=== PATIENT | female | born 1995 | race American Indian/Alaskan Native ===

== ENCOUNTER 2017-07-16 09:45 | Emergency (ER) | payer SELFPAY ==
[2017-07-16 12:55] LABS: HCG Qualitative,Urine Positive (Negative)
[2017-07-16 13:01] LABS: Bacteria,Urine 1+ /HPF (Negative); Bilirubin,Urine NEG (Negative); Blood,Urine NEG (Negative); Color,Urine Yellow (Yellow); Mucus,Urine 1+ /HPF; Nitrite,Urine NEG (Negative); Urobilinogen,Urine < 2.0 mg/dL (<2.0)
[2017-07-16 13:58] LABS: Basophils % (Auto) 0.4 % (0.0-1.8); Eosinophils # (Auto) 0.1 K/mm3 (0.0-0.4); Eosinophils % (Auto) 1.9 % (0.0-4.3); Hematocrit 36.5 % (30.3-42.9); Hemoglobin 12.3 gm/dl (10.1-14.3); Lymphocytes # (Auto) 2.2 K/mm3 (1.2-5.4); Lymphocytes % (Auto) 33.3 % (13.4-35.0); Mean Corpuscular HGB Conc 34 % (30-34); Mean Corpuscular Hemoglobin 32 pg (28-32); Mean Corpuscular Volume 94 fl (79-97); Monocytes # (Auto) 0.5 K/mm3 (0.0-0.8); Monocytes % (Auto) 7.5 % (0.0-7.3); Platelet Count 263 K/mm3 (140-440); Red Blood Count 3.89 M/mm3 (3.65-5.03); Red Cell Distribution Width 13.1 % (13.2-15.2)
[2017-07-16] MEDS ORDERED: XYLOCAINE 1% MPF 5 mL INFILTRATI ONE (14:02)
[2017-07-16] MEDS ORDERED: ROCEPHIN IM ONE (14:02)
[2017-07-16] MEDS ORDERED: ZITHROMAX PO ONE (14:02)
[2017-07-16 14:12] LABS: BUN/Creatinine Ratio 24; Blood Urea Nitrogen 12 mg/dL (7-17); Calcium 9.1 mg/dL (8.4-10.2); Hemolysis Index 7
--- NOTE | 2017-07-16 14:39 | Emergency Department Report ---
ED Female HPI - General Chief complaint: Urogenital-Female Stated complaint: STOMACH CRAMPS Time Seen by Provider: 07/16/17 13:09 Source: patient Mode of arrival: Ambulatory Limitations: No Limitations - History of Present Illness Initial comments: This is a 21-year-old female nontoxic, well nourished in appearance, no acute signs of distress presents to the ED with c/o of left sided pelvic cramping, dysuria, polyuria, and vaginal discharge x2 weeks. Patient denies any abdominal pain, chest pain, shortness of breathe, fever, chills, headache, nausea, vomiting, stiff neck, numbness or tingling. Patient describes vaginal discharge as white in color. Patient denies any allergies or PMH. Patient stated she is concerned about STD and would like to be treated empirically in the ED. MD Complaint: vaginal discharge, dysuria, pelvic pain -: week(s) (2) Severity: mild Severity scale (0 -10): 8 Quality: burning Consistency: constant Improves with: none Worsens with: urination Are you Now?: Yes Last Menstrual Period: 06/14/17 EDC: 03/21/18 Associated Symptoms: vaginal discharge, dysuria, other (right pelvic cramping). denies: vaginal bleeding, abdominal pain, nausea/vomiting, fever/chills, headaches, loss of appetite, hematuria, rash, seizure, shortness of breath, syncope, weakness - Related Data Sexually active: Yes Previous Rx's Medication Instructions Recorded Last Taken Type Nitrofurantoin [place]/M-Cryst 100 mg PO Q12HR #14 capsule 07/16/17 Unknown Rx [Macrobid CAP] metroNIDAZOLE [Flagyl] 500 mg PO Q12HR #14 tab 07/16/17 Unknown Rx Allergies Allergy/AdvReac Type Severity Reaction Status Date / Time No Known Allergies Allergy Unverified 07/16/17 10:41 ED Review of Systems ROS: Stated complaint: STOMACH CRAMPS Other details as noted in HPI Constitutional: denies: chills, fever Eyes: denies: eye pain, eye discharge, vision change ENT: denies: ear pain, throat pain Respiratory: denies: cough, shortness of breath, wheezing Cardiovascular: denies: chest pain, palpitations Endocrine: no symptoms reported Gastrointestinal: other (pelvic pain). denies: abdominal pain, nausea, diarrhea Genitourinary: urgency, dysuria, discharge Musculoskeletal: denies: back pain, joint swelling, arthralgia Skin: denies: rash, lesions Neurological: denies: headache, weakness, paresthesias Psychiatric: denies: anxiety, depression Hematological/Lymphatic: denies: easy bleeding, easy bruising ED Past Medical Hx - Past Medical History Previous Medical History?: No - Surgical History Past Surgical History?: No - Social History Smoking Status: Current Some Day Smoker Substance Use Type: Alcohol - Medications Home Medications: Home Medications Medication Instructions Recorded Confirmed Last Taken Type Nitrofurantoin [place]/M-Cryst 100 mg PO Q12HR #14 capsule 07/16/17 Unknown Rx [Macrobid CAP] metroNIDAZOLE [Flagyl] 500 mg PO Q12HR #14 tab 07/16/17 Unknown Rx ED Physical Exam - General Limitations: No Limitations General appearance: alert, in no apparent distress - Head Head exam: Present: atraumatic, normocephalic, normal inspection - Eye Eye exam: Present: normal appearance, PERRL, EOMI. Absent: scleral icterus, conjunctival injection, nystagmus, periorbital swelling, periorbital tenderness Pupils: Present: normal accommodation - ENT ENT exam: Present: normal exam, normal orophraynx, mucous membranes moist, TM's normal bilaterally, normal external ear exam - Neck Neck exam: Present: normal inspection, full ROM. Absent: tenderness, meningismus, lymphadenopathy, thyromegaly - Respiratory Respiratory exam: Present: normal lung sounds bilaterally. Absent: respiratory distress, wheezes, rales, rhonchi, stridor, chest wall tenderness, accessory muscle use, decreased breath sounds, prolonged expiratory - Cardiovascular Cardiovascular Exam: Present: regular rate, normal rhythm, normal heart sounds. Absent: irregular rhythm, systolic murmur, diastolic murmur, rubs, gallop - GI/Abdominal GI/Abdominal exam: Present: soft, normal bowel sounds. Absent: distended, tenderness, guarding, rebound, rigid, diminished bowel sounds - Expanded GI/Abdominal Exam Expanded GI/Abdominal exam: Absent: psoas sign, obturator sign, heel tap sign, Parra's sign, Rovsing's sign, tenderness at [place]'s [place], ascites - Rectal Rectal exam: Present: deferred - External exam: Present: normal external exam, other (steam table worker Leslee director asset present during exam). Absent: erythema, swelling, lesions, lacerations, ecchymosis, bleeding Speculum exam: Present: normal speculum exam, cervical discharge (white with no odor), other (OS closed. steam table worker Leslee director asset present during exam). Absent : erythema, vaginal discharge, vaginal bleeding, foreign body, tissue, laceration Bi-manual exam: Present: normal bi-manual exam, other (steam table worker Leslee director asset present during exam). Absent: cervical motion tendernes, adnexal tenderness, adnexal mass, uterine enlargement, uterine tenderness - Extremities Exam Extremities exam: Present: normal inspection, full ROM, normal capillary refill. Absent: tenderness, pedal edema, joint swelling, calf tenderness - Back Exam Back exam: Present: normal inspection, full ROM. Absent: tenderness, CVA tenderness (R), CVA tenderness (L), muscle spasm, paraspinal tenderness, vertebral tenderness, rash noted - Neurological Exam Neurological exam: Present: alert, oriented X3, CN II-XII intact, normal gait, reflexes normal - Psychiatric Psychiatric exam: Present: normal affect, normal mood - Skin Skin exam: Present: warm, dry, intact, normal color. Absent: rash ED Course Vital Signs 07/16/17 07/16/17 10:41 16:08 Temperature 98.2 F 98.2 F Pulse Rate 110 H 101 H Respiratory 16 16 Rate Blood Pressure 129/77 114/55 O2 Sat by Pulse 99 99 Oximetry - Reevaluation(s) Reevaluation #1: 07/16/17 14:43 Patient is speaking in full sentences with no signs of distress noted. ED Medical Decision Making - Lab Data Result diagrams: 07/16/17 13:41 07/16/17 13:41 - Medical Decision Making This is a 21-year-old female that presents with positive , BV, and UTI. Patient is stable and was examined by me. US obtained and dictated by radiologist which indicates no abnormalities and no evidence of IUP. A ectopic not be excluded. Due to patient distention age with a last menstrual cycle of I can correlate that this is related to age. Beta HCG mahendra obtained. Patient was instructed to follow-up with OBGYN in 24 hours symptoms such as vaginal bleeding, severe worsening abdominal pain or any abnormal symptoms to return to emergency room as soon as possible. Patient was also instructed to return in 48 hours for repeat quant HCG and possible US. Labs within normal limits. UA indiciated UTI. WET prep shows BV. GC pending. Pt was instructed to return in 3 days for results. Patient wanted to be treated empirically with Rocephin and azithromycin for possible STD which patient received. At time time of discharge, the patient does not seem toxic or ill in appearance. No acute signs of distress noted. Patient agrees to discharge treatment plan of care. No further questions noted by the patient. Critical care attestation.: If time is entered above; I have spent that time in minutes in the direct care of this critically ill patient, excluding procedure time. ED Disposition Clinical Impression: Bacterial vaginosis UTI (urinary tract infection) Qualifiers: Urinary tract infection type: site unspecified Hematuria presence: without hematuria Qualified Code(s): N39.0 - Urinary tract infection, site not specified Qualifiers: Weeks of gestation: unspecified Qualified Code(s): Z34.90 - Encounter for supervision of normal , unspecified, unspecified trimester Disposition: TO HOME OR SELFCARE Is pt being admited?: No Does the pt Need Aspirin: No Condition: Stable Instructions: Bacterial Vaginosis (ED), Metronidazole (By mouth), Nitrofurantoin Macrocrystals (By mouth), Urinary Tract Infection in Women (ED), (ED) Additional Instructions: Follow-up with OBGYN in 24 hours symptoms such as vaginal bleeding, severe worsening abdominal pain or any abnormal symptoms to return to emergency room as soon as possible. Return to the Emergency Room in 48 hours for a repeat HCG and possible Ultrasound. Return to the medical records to obtain your results of gonorrhea/chlamydia. Prescriptions: metroNIDAZOLE [Flagyl] 500 mg PO Q12HR #14 tab Nitrofurantoin [place]/M-Cryst [Macrobid CAP] 100 mg PO Q12HR #14 capsule Referrals: PRIMARY CARE, [Primary Care Provider] - 3-5 Days SHE STORM MD [Staff Physician] - 3-5 Days [facility] [Outside] - 3-5 Days [facility] [Outside] - 3-5 Days MELONIE ANGELES MD [Staff Physician] - 24 Hours Forms: STI Treatment and Prevention, Work/School Release Form(ED)
--- NOTE | 2017-07-16 16:18 | Ultrasound Report ---
FINAL REPORT PROCEDURE: US OB TRANSVAGINAL TECHNIQUE: Real-time transvaginal sonography of the uterus, placenta, amniotic fluid, adnexa, and fetus was performed with image documentation. Measurements were obtained to determine age/size. M-mode Doppler was used to document heartbeat. CPT 06097 HISTORY: left side pelvic pain. Positive test COMPARISON: No prior studies are available for comparison. FINDINGS: There is no evidence of intrauterine . The endometrial stripe measures up to 15.9 millimeter in thickness. No fluid is seen in the endometrial canal. No uterine masses are identified. The uterus measures 7.7 x 5.0 x 5.8 centimeter. Right and left ovaries show no focal abnormalities. Small peripheral follicles are visualized. The right ovary measures 2.1 x 2.5 x 2.0 centimeter. The left ovary measures 3.8 x 2.5 x 3.5 centimeter. IMPRESSION: Uterus and ovaries show no focal abnormalities. No evidence of intrauterine . Recommend correlation with serial beta HCG units and follow-up pelvic ultrasound if clinically indicated. Ectopic cannot be excluded.
[2017-07-16 16:30] VITALS: BP 114/55
--- NOTE | 2017-07-17 07:15 | Ultrasound Report ---
ULTRASOUND OB LESS THAN 14 WEEKS FETUS History: Left-sided pelvic pain. Findings: Transabdominal ultrasound was performed. Transvaginal OB ultrasound was also performed at the same time which was dictated separately. Images demonstrate an anteverted uterus measuring 7.9 x 5.0 x 5.8 cm. No obvious uterine mass. The endometrium measures approximately 1.9 cm. No gestational sac is demonstrated on transabdominal ultrasound. The ovaries are obscured. No pelvic fluid collection. Impression: No intrauterine is demonstrated on transabdominal imaging. Please refer to the ultrasound OB transvaginal performed on the same day.
== END 2017-07-16 17:09 | disposition home or self-care (01) ==
LOC: ED 09:45
DX: Z34.90 Encounter for supervision of normal pregnancy, unspecified, unspecified trimester (principal); N39.0 Urinary tract infection, site not specified; N76.0 Acute vaginitis; B96.89 Other specified bacterial agents as the cause of diseases classified elsewhere; F17.200 Nicotine dependence, unspecified, uncomplicated
CPT/HCPCS: 36415; 76801; 76817; 80048; 81001; 81025; 84702; 85025; 87210; 87591; 96372; 99284; J0696

== ENCOUNTER 2020-08-20 15:48 | Emergency (ER) | payer MEDICAID ==
[2020-08-20 16:00] VITALS: BP 110/60
--- NOTE | 2020-08-20 16:52 | Emergency Department Report ---
ED Female HPI - General Chief complaint: Skin/Abscess/Foreign Body Stated complaint: STUCK CONDOM Time Seen by Provider: 08/20/20 16:15 Source: patient Mode of arrival: Ambulatory Limitations: No Limitations - History of Present Illness Initial comments: pt is a 24 yo female who presents to the ED with c/o a condom being stuck in the vaginal vault since 4 AM this morning. she states she went to urgent care and they were able to visualize the condom but did not have the necessary tools for removal. she states she was advised to report to the ED for removal. she states she has some mild suprapubic pressure. she denies any fever, n/v/d, dysuria, abnormal vaginal discharge. no pmhx. no allergies to meds. LNMP last week. - Related Data Previous Rx's Medication Instructions Recorded Last Taken Type Nitrofurantoin [place]/M-Cryst 100 mg PO Q12HR #14 capsule 07/16/17 Unknown Rx [Macrobid CAP] metroNIDAZOLE [Flagyl] 500 mg PO Q12HR #14 tab 07/16/17 Unknown Rx Allergies Allergy/AdvReac Type Severity Reaction Status Date / Time No Known Allergies Allergy Verified 08/20/20 15:55 ED Review of Systems ROS: Stated complaint: STUCK CONDOM Other details as noted in HPI Comment: All other systems reviewed and negative ED Past Medical Hx - Past Medical History Previous Medical History?: No - Surgical History Past Surgical History?: No - Social History Smoking Status: Never Smoker Substance Use Type: Alcohol - Medications Home Medications: Home Medications Medication Instructions Recorded Confirmed Last Taken Type Nitrofurantoin [place]/M-Cryst 100 mg PO Q12HR #14 capsule 07/16/17 Unknown Rx [Macrobid CAP] metroNIDAZOLE [Flagyl] 500 mg PO Q12HR #14 tab 07/16/17 Unknown Rx ED Physical Exam - General Limitations: No Limitations General appearance: alert, in no apparent distress - Head Head exam: Present: atraumatic, normocephalic - Eye Eye exam: Present: normal appearance - ENT ENT exam: Present: mucous membranes moist - Respiratory Respiratory exam: Absent: respiratory distress, accessory muscle use - GI/Abdominal GI/Abdominal exam: Present: soft. Absent: distended, tenderness, guarding, rebound, rigid - Speculum exam: Present: other (there is a condom present in the vaginal vaginal vault, no signficant discharge, no signficant odor, no erythema or bleeding, no CMT or adnexal ttp or masses, entrepreneurship program director:CARLOS EDUARDO wallis) - Neurological Exam Neurological exam: Present: alert, oriented X3 - Psychiatric Psychiatric exam: Present: normal affect, normal mood - Skin Skin exam: Present: warm, dry, intact ED Course Vital Signs 08/20/20 15:56 Temperature 98.8 F Pulse Rate 69 Respiratory 20 Rate Blood Pressure 110/60 O2 Sat by Pulse 96 Oximetry - Procedure Description Procedures done: vaginal foreign body removal. entrepreneurship program director: carlos eduardo wallis. speculum used and easily able to visualize condom foreign body in vaginal vault, able to easily remove with foreceps provided in kit, no complications, no bleeding or trauma, pt tolerated well, no complications ED Medical Decision Making - Medical Decision Making pt is a 24 yo female who presents to the ED with c/o a condom being stuck in the vaginal vault since 4 AM this morning. she states she went to urgent care and they were able to visualize the condom but did not have the necessary tools for removal. she states she was advised to report to the ED for removal. she states she has some mild suprapubic pressure. she denies any fever, n/v/d, dysuria, abnormal vaginal discharge. no pmhx. no allergies to meds. LNMP last week. Vitals are normal. On exam: there is a condom present in the vaginal vaginal vault, no signficant discharge, no signficant odor, no erythema or bleeding, no CMT or adnexal ttp or masses, entrepreneurship program director:CARLOS EDUARDO wallis. Foreign body removed per procedure note without any complications. Advised patient please follow up with intensive care specialist. please consider a backup control method and discuss with primary care or intensive care specialist. return to the emergency room for any new or worsening symptoms. Critical care attestation.: If time is entered above; I have spent that time in minutes in the direct care of this critically ill patient, excluding procedure time. ED Disposition Clinical Impression: Vaginal foreign body Qualifiers: Encounter type: initial encounter Qualified Code(s): T19.2XXA - Foreign body in vulva and vagina, initial encounter Disposition: TO HOME OR SELFCARE Is pt being admited?: No Does the pt Need Aspirin: No Condition: Stable Instructions: Vaginal Foreign Body Additional Instructions: please follow up with intensive care specialist. please consider a backup control method and discuss with primary care or intensive care specialist. return to the emergency room for any new or worsening symptoms. Referrals: [facility] [Provider Group] - 2-3 Days Time of Disposition: 16:51 Print Language: LAO
== END 2020-08-20 16:30 | disposition home or self-care (01) ==
LOC: ED 15:48
DX: T19.2XXA Foreign body in vulva and vagina, initial encounter (principal); Z79.899 Other long term (current) drug therapy; X58.XXXA Exposure to other specified factors, initial encounter; Y93.89 Activity, other specified; Y92.89 Other specified places as the place of occurrence of the external cause; Y99.8 Other external cause status
CPT/HCPCS: 99282

== ENCOUNTER 2020-09-20 12:58 | Emergency (ER) | payer MEDICAID ==
[2020-09-20 13:55] VITALS: BP 109/60
--- NOTE | 2020-09-20 15:18 | Emergency Department Report ---
- General Chief complaint: Skin/Abscess/Foreign Body Stated complaint: OTHER Time Seen by Provider: 09/20/20 15:06 Source: patient Mode of arrival: Ambulatory Limitations: No Limitations - History of Present Illness Initial comments: 24-year-old -Irish female presents to the emergency room stating that she has a condom stuck in her vaginal area. Patient states that he got stuck last night and she was not able to retrieve. Patient reports just some mild irritation around the orifice of the vaginal opening. Denies any fever chills no nausea no vomiting. MD complaint: foreign body -: Last night Tetanus Up to Date: yes Severity scale (0 -10): 0 Associated symptoms: denies other symptoms Treatments Prior to Arrival: none - Related Data Previous Rx's Medication Instructions Recorded Last Taken Type Nitrofurantoin [place]/M-Cryst 100 mg PO Q12HR #14 capsule 07/16/17 Unknown Rx [Macrobid CAP] metroNIDAZOLE [Flagyl TAB] 500 mg PO Q12HR #14 tab 09/20/20 Unknown Rx Allergies Allergy/AdvReac Type Severity Reaction Status Date / Time No Known Allergies Allergy Verified 09/20/20 13:51 Abscess Boil HPI - HPI Chief Complaint: Skin/Abscess/Foreign Body Stated Complaint: OTHER Time Seen by Provider: 09/20/20 15:06 Home Medications: Previous Rx's Medication Instructions Recorded Last Taken Type Nitrofurantoin [place]/M-Cryst 100 mg PO Q12HR #14 capsule 07/16/17 Unknown Rx [Macrobid CAP] metroNIDAZOLE [Flagyl TAB] 500 mg PO Q12HR #14 tab 09/20/20 Unknown Rx Allergies/Adverse Reactions: Allergies Allergy/AdvReac Type Severity Reaction Status Date / Time No Known Allergies Allergy Verified 09/20/20 13:51 ED Review of Systems ROS: Stated complaint: OTHER Other details as noted in HPI Comment: All other systems reviewed and negative ED Past Medical Hx - Past Medical History Previous Medical History?: No - Surgical History Past Surgical History?: No - Social History Smoking Status: Never Smoker Substance Use Type: Alcohol - Medications Home Medications: Home Medications Medication Instructions Recorded Confirmed Last Taken Type Nitrofurantoin [place]/M-Cryst 100 mg PO Q12HR #14 capsule 07/16/17 Unknown Rx [Macrobid CAP] metroNIDAZOLE [Flagyl TAB] 500 mg PO Q12HR #14 tab 09/20/20 Unknown Rx ED Physical Exam - General Limitations: No Limitations General appearance: alert, in no apparent distress - Head Head exam: Present: atraumatic, normocephalic - Eye Eye exam: Present: normal appearance - ENT ENT exam: Present: normal exam, normal external ear exam - Neck Neck exam: Present: normal inspection, full ROM - Respiratory Respiratory exam: Absent: respiratory distress, accessory muscle use - Cardiovascular Cardiovascular Exam: Present: regular rate - GI/Abdominal GI/Abdominal exam: Present: soft, normal bowel sounds. Absent: distended, tenderness, guarding, rebound - External exam: Present: normal external exam Speculum exam: Present: foreign body (Left adnexal condom) Bi-manual exam: Present: normal bi-manual exam. Absent: cervical motion tendernes, adnexal tenderness, adnexal mass, uterine enlargement, uterine tenderness - Extremities Exam Extremities exam: Present: normal inspection, full ROM - Back Exam Back exam: Present: normal inspection - Neurological Exam Neurological exam: Present: alert, oriented X3, normal gait - Psychiatric Psychiatric exam: Present: normal affect, normal mood - Skin Skin exam: Present: warm, dry, intact, normal color. Absent: rash ED Course Vital Signs 09/20/20 09/20/20 13:54 13:55 Temperature 98.8 F Pulse Rate 86 Respiratory 18 Rate Blood Pressure 109/60 O2 Sat by Pulse 100 Oximetry ED Medical Decision Making - Medical Decision Making 24-year-old -Irish female presents to the emergency room stating that she has a condom stuck in her vaginal area. Patient states that he got stuck last night and she was not able to retrieve. Patient reports just some mild i rritation around the orifice of the vaginal opening. Denies any fever chills no nausea no vomiting. Foreign body was removed from vaginal area without any complications. Patient replaced on Flagyl prophylactically for bacterial infection. Critical care attestation.: If time is entered above; I have spent that time in minutes in the direct care of this critically ill patient, excluding procedure time. ED Disposition Clinical Impression: Foreign body in vagina Qualifiers: Encounter type: initial encounter Qualified Code(s): T19.2XXA - Foreign body in vulva and vagina, initial encounter Disposition: TO HOME OR SELFCARE Is pt being admited?: No Does the pt Need Aspirin: No Condition: Stable Instructions: Vaginal Foreign Body, [id number] Additional Instructions: Complete antibiotics as prescribed. Do not douche. Tylenol ibuprofen for pain. Prescriptions: metroNIDAZOLE [Flagyl TAB] 500 mg PO Q12HR #14 tab Referrals: [facility] [Outside] - 3-5 Days
== END 2020-09-20 15:48 | disposition home or self-care (01) ==
LOC: ED 12:58
DX: T19.2XXA Foreign body in vulva and vagina, initial encounter (principal); Z79.899 Other long term (current) drug therapy; W45.8XXA Other foreign body or object entering through skin, initial encounter; Y93.89 Activity, other specified; Y92.89 Other specified places as the place of occurrence of the external cause; Y99.8 Other external cause status
CPT/HCPCS: 99283